=== PATIENT | female | born 1955 | race Caucasian/White ===

== ENCOUNTER 2023-10-26 10:24 | Day surgery (SDC) | payer OTHER ==
[2023-10-19 11:57] LABS: BILIRUBIN,URINE NEGATIVE (NEGATIVE); BLOOD, URINE NEGATIVE (NEGATIVE); CLARITY/URINE CLEAR (CLEAR); COLOR,URINE YELLOW (YELLOW); GLUCOSE,URINE NEGATIVE (NEGATIVE); KETONES,URINE NEGATIVE (NEGATIVE); LEUKOCYTE ESTERASE ,URINE NEGATIVE (NEGATIVE); NITRITE, URINE NEGATIVE (NEGATIVE); PROTEIN URINE NEGATIVE (NEGATIVE); UROBILINOGEN,URINE 0.2 (0.2-1.0)
[~2023-10-26] VITALS: Ht 167.6 cm; Wt 74.4 kg
[~2023-10-26 10:24] MED LIST: DEXTROSE IV ONE; [UNRECOGNIZED DRUG - OTHER] IV ONE
[2023-10-26] MEDS ORDERED: ACETAMINOPHEN 500 MG TABLET ONE (10:39)
[2023-10-26] MEDS: ACETAMINOPHEN 500 MG TABLET PO ONE (11:06)
[2023-10-26] MEDS ORDERED: CEFAZOLIN SOD 2 GM in D5W 50 ML IV ONE (12:00)
[2023-10-26 14:30] VITALS: O2SAT 99
[2023-10-26] MEDS ORDERED: NEOSTIGMINE METHYLSULFATE 1 MG/ML, 10 ML VIAL ONE (14:39)
[2023-10-26] MEDS ORDERED: NS IRRIG SOLN 5000 ML IR ONE (14:39)
[2023-10-26] MEDS ORDERED: DEXAMETHASONE SOD PHOSPHATE 4 MG/ML VIAL ONE (14:39)
[2023-10-26] MEDS ORDERED: ONDANSETRON HCL 4 MG/2 ML VIAL ONE ×2 (14:39→18:43)
[2023-10-26] MEDS ORDERED: SEVOFLURANE 15 MIN GAS INH ONE (14:39)
[2023-10-26] MEDS ORDERED: fentaNYL CITRATE/PF 100 MCG/2 ML AMP ONE (14:39)
[2023-10-26] MEDS ORDERED: WATER FOR IRRIGATION,STERILE 1,000 ML IRRIG.SOLN IR ONE (14:39)
[2023-10-26] MEDS ORDERED: PROPOFOL 200MG/ 20ML VIAL (DIPRIVAN) IV ONE (14:39)
[2023-10-26] MEDS ORDERED: LR 1,000 ML IV.SOLN IV ONE (14:39)
[2023-10-26] MEDS ORDERED: NS IRRIG SOLN 1000 ML IR ONE (14:39)
[2023-10-26] MEDS ORDERED: SUCCINYLCHOLINE CHLORIDE 20 MG/ML(QUELICIN) ONE (14:39)
[2023-10-26] MEDS ORDERED: ROCURONIUM BROMIDE 10 MG/ML (ZEMURON) ONE (14:39)
[2023-10-26] MEDS ORDERED: GLYCOPYRROLATE 0.2 MG/ML VIAL ONE (14:39)
[2023-10-26] MEDS ORDERED: BUPIVACAINE /PF 0.25% 30 ML VIAL INJ ONE (14:39)
[2023-10-26] MEDS ORDERED: MIDAZOLAM HCL 2 MG/2 ML VIAL (VERSED) ONE (14:39)
[2023-10-26] MEDS ORDERED: METOCLOPRAMIDE HCL 10 MG/2 ML VIAL IVP PRN (16:00)
[2023-10-26] MEDS ORDERED: ACETAMINOPHEN I.V. 1000 MG 100 ML IV ONE (16:00)
[2023-10-26] MEDS: HYDROmorphone 1 MG/ML INJ. CARTRIDGE IVP PRN ×2 (17:15→18:45)
[2023-10-26] MEDS ORDERED: HYDROmorphone 2 MG/ML VIAL ONE (17:17)
[2023-10-26] MEDS ORDERED: HYDROmorphone 1 MG/ML INJ. CARTRIDGE ONE (17:51)
[2023-10-26] MEDS ORDERED: IBUPROFEN 600 MG TABLET PO ONE (18:40)
[2023-10-26] MEDS ORDERED: KETOROLAC TROMETHAMINE 30 MG VIAL ONE (18:42)
[2023-10-26] MEDS: ONDANSETRON HCL 4 MG/2 ML VIAL IVP PRN (18:47)
[2023-10-26 18:50] VITALS: BP_SYST 149; PULSE 56; RESP 18
[2023-10-26] MEDS: TAMSULOSIN HCL 0.4 MG CAP PO ONE (20:09)
[2023-10-26] MEDS: KETOROLAC TROMETHAMINE 30 MG VIAL IVP ONE (20:15)
== END 2023-10-26 21:35 | disposition home or self-care (01) ==
LOC: SDS 10:24 → SMU 10:26 → SDS 21:35
PROVIDERS: ATTEND Orthopaedic Surgery Sports Medicine
DX: M75.122 Complete rotator cuff tear or rupture of left shoulder, not specified as traumatic (principal); M75.42 Impingement syndrome of left shoulder; M94.212 Chondromalacia, left shoulder; I10 Essential (primary) hypertension; E11.40 Type 2 diabetes mellitus with diabetic neuropathy, unspecified; G43.909 Migraine, unspecified, not intractable, without status migrainosus; E78.5 Hyperlipidemia, unspecified; F32.A Depression, unspecified; Z88.0 Allergy status to penicillin; Z88.2 Allergy status to sulfonamides; Z79.899 Other long term (current) drug therapy; Z90.710 Acquired absence of both cervix and uterus; Z98.890 Other specified postprocedural states
CPT/HCPCS: 81001; 87081; 81003; 29827; 29823; J2710; J3490 ×3; J0690; J1100; J1885; J2250; J2405; J2704; J0330; J3010; J1170 ×2; J7060; J7120; C1713 ×2